=== PATIENT | male | born 1990 | race Two or more races ===

== ENCOUNTER 2018-10-25 19:15 | Emergency (ER) | payer SELFPAY ==
[~2018-10-25] VITALS: Ht 172.7 cm; Wt 54.4 kg
[2018-10-25] MEDS ORDERED: UNABLE MC (19:30)
[2018-10-25] MEDS ORDERED: IV NORMAL SALINE 1000ML BAG 1,000 ML IV ONE (19:45)
[2018-10-25] MEDS ORDERED: LIDOCAINE 2% 20 ML VIAL. IJ ONE (19:45)
[2018-10-25 19:54] LABS: CALCIUM 8.6 mg/dL (8.5-10.1); GFR 89.6; POTASSIUM 4.3 mmol/L (3.5-5.1)
[2018-10-25 19:56] LABS: BASO # 0.1 x10^3/uL (0.0-0.2); BASO % 1 % (0-3); EOS # 0.1 x10^3/uL (0.0-0.7); EOS % 1 % (0-3); HEMATOCRIT 45.5 % (39.0-53.0); HEMOGLOBIN 15.3 g/dL (13.0-17.5); LYMPH # 3.9 x10^3/uL (1.0-4.8); LYMPH % 33 % (24-48); MEAN CORPUSCULAR HEMOGLOBIN 30 pg (25-35); MEAN CORPUSCULAR HGB CONC 34 g/dL (31-37); MEAN CORPUSCULAR VOLUME 91 fL (79-100); MONO # 0.5 x10^3/uL (0.0-1.1); MONO % 4 % (0-9); NEUT # 7.3 x10^3uL (1.8-7.7); NEUT % 62 % (31-73); PLATELET COUNT 399 x10^3/uL (140-400); RED BLOOD COUNT 5.01 x10^6/uL (4.30-5.70); RED CELL DISTRIBUTION WIDTH 13.5 % (11.5-14.5); WHITE BLOOD COUNT 11.9 x10^3/uL (4.0-11.0)
[2018-10-25 20:00] LABS: ALBUMIN 4.2 g/dL (3.4-5.0); MAGNESIUM 2.5 mg/dL (1.8-2.4); TOTAL BILIRUBIN 0.3 mg/dL (0.2-1.0); TOTAL PROTEIN 8.4 g/dL (6.4-8.2)
[2018-10-25] MEDS ORDERED: DIPHTH,PERTUSS(ACELL),TET TOX 0.5 ML DISP.SYRIN. VAX IM ONE (20:00)
[2018-10-25 20:01] LABS: PROTHROMBIN TIME PATIENT 13.8 SEC (11.7-14.0)
[2018-10-25] MEDS ORDERED: fentaNYL PF VIAL 100 MCG/2 ML VIAL IV ONE (20:15)
[2018-10-25] MEDS ORDERED: IOHEXOL 300 MG/ML 100ML VIAL. IV ONE (20:15)
[2018-10-25] MEDS ORDERED: LIDOCAINE 2% 20 ML VIAL. ONE (20:16)
--- NOTE | 2018-10-25 20:23 | RAD ---
CT scan of the head without contrast 10/25/2018 Clinical History: Head pain post trauma. Technique: Unenhanced, contiguous, 5 mm axial sections were obtained through the head. One or more of the following individualized dose reduction techniques were utilized for this study: 1. Automated exposure control. 2. Adjustment of the mA and/or kV according to patient size. 3. Use of iterative reconstruction technique. Findings: The ventricles and sulci are within normal limits in size and configuration. No area of abnormal attenuation is seen involving brain parenchyma. No extra-axial fluid collection is noted. No skull fracture is seen. Impression: No acute intracranial abnormality is seen. CT scan of the cervical spine without contrast 10/25/2018 Clinical history: Neck pain post trauma. Technique: Unenhanced, contiguous, 0.625 mm axial sections were obtained through the cervical spine. Axial, coronal and sagittal reconstructed images were obtained. One or more of the following individualized dose reduction techniques were utilized for this study: 1. Automated exposure control. 2. Adjustment of the mA and/or kV according to patient size. 3. Use of iterative reconstruction technique. Findings: Sagittal and coronal reconstructed images demonstrate very mild lateral curvature of the cervical spine, convex to the left. No fracture or subluxation of the cervical vertebraeis seen. Impression: No fracture or subluxation of the cervical vertebra is identified. Electronically signed by: Beto Luna MD (10/25/2018 8:20 PM) [facility]
--- NOTE | 2018-10-25 20:29 | RAD ---
CT scan of the facial bones without contrast 10/25/2018 CLINICAL HISTORY: Facial pain post trauma. TECHNIQUE: Unenhanced, contiguous, 0.625 mm axial sections were obtained through the facial bones and orbits. 3 mm reconstructed sagittal, axial and coronal images were obtained. One or more of the following individualized dose reduction techniques were utilized for this study: 1. Automated exposure control. 2. Adjustment of the mA and/or kV according to patient size. 3. Use of iterative reconstruction technique. FINDINGS: An acute comminuted fracture of the posterolateral wall of the right maxillary sinus is seen. The fracture fragments are not significantly displaced. A small fluid level consistent with hemorrhage is seen within the posterior aspect of the right maxillary sinus. No additional facial bone fracture is seen. Both orbits are intact. Mild mucosal thickening in seen scattered throughout the paranasal sinuses. IMPRESSION: Acute comminuted fracture of the posterolateral wall of the right maxillary sinus. Electronically signed by: Beto Luna MD (10/25/2018 8:26 PM) [facility]
[2018-10-25] MEDS ORDERED: CONTRAST GIVEN. MC PRN (20:30)
[2018-10-25 20:39] LABS: BILIRUBIN,URINE NEGATIVE (NEG); CLARITY,URINE CLEAR; COLOR,URINE YELLOW; NITRITE,URINE NEGATIVE (NEG); PH,URINE 5.5; PROTEIN,URINE NEGATIVE (NEG-TRACE); UROBILINOGEN,URINE 0.2 mg/dL (0.2 mg/dL)
--- NOTE | 2018-10-25 20:53 | RAD ---
CT scan of the chest, abdomen and pelvis with contrast 10/25/2018 CLINICAL HISTORY: Chest, abdominal and pelvic pain post trauma. TECHNIQUE: After the intravenous administration of 75 cc of Omnipaque, contiguous 5 mm axial sections were obtained through the chest, abdomen and pelvis. One or more of the following individualized dose reduction techniques were utilized for this study: 1. Automated exposure control. 2. Adjustment of the mA and/or kV according to patient size. 3. Use of iterative reconstruction technique. FINDINGS: Comparison is made to an AP pelvis radiograph and portable chest radiograph performed earlier today. No mediastinal hematoma is seen. The heart and thoracic aorta are within normal limits. Minimal dependent subsegmental atelectasis is seen involving both lungs. No acute pulmonary infiltrate is seen. No pleural effusion or pneumothorax is noted. An acute comminuted fracture of the mid diaphysis of the clavicle is seen. Slight overriding of the fracture fragments is noted. The liver, spleen, pancreas, adrenal glands and kidneys are within normal limits. The abdominal aorta tapers normally. The gallbladder is slightly contracted. No free fluid or free air is seen within the abdomen. There is no evidence of bowel obstruction. Moderate amount stool seen throughout the colon. The appendix is well-visualized and is within normal limits. Images through the pelvis demonstrate the urinary bladder distended with urine. No free fluid is seen. No pelvic hematoma is noted. Very mild S-shaped curvature of the thoracolumbar spine is noted. The osseous structures of the abdomen and pelvis are intact. IMPRESSION: 1. Acute comminuted fracture of the right clavicle 2. No additional acute abnormality is seen. Electronically signed by: Beto Luna MD (10/25/2018 8:50 PM) [facility]
[2018-10-25 20:54] LABS: AMPHETAMINE/METHAMPHETAMINE NEG (NEG); BACTERIA,URINE 0 /HPF (0-FEW); BARBITURATES NEG (NEG); BENZODIAZEPINES NEG (NEG); CANNABINOIDS NEG (NEG); COCAINE NEG (NEG); METHADONE NEG (NEG); OPIATES NEG (NEG); PHENCYCLIDINE NEG (NEG); RBC,URINE OCC /HPF (0-2); SQUAMOUS EPITHELIAL CELL,UR FEW /LPF; WBC,URINE OCC /HPF (0-4)
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
[2018-10-25] MEDS ORDERED: LIDOCAINE 2%/EPI 1:100,000 20 ML VIAL. IJ ONE (21:30)
[2018-10-25] MEDS ORDERED: ZIPRASIDONE IM 20 MG VIAL. IM ONE ×2 (22:42→23:15)
[2018-10-25] MEDS ORDERED: NEOMY/BACITR/POLYMYXIN OINT PACKET. TP ONE (22:49)
--- NOTE | 2018-10-25 23:39 | RAD ---
AP portable chest radiograph 10/25/2018 Clinical History: Chest pain. Trauma An AP supine portable digital radiograph of the chest was obtained. The cardiac and mediastinal silhouettes are within normal limits in size and configuration. No acute pulmonary infiltrate is seen. No pleural effusion or pneumothorax is noted. An acute fracture of the mid shaft of the right clavicle is noted. Overriding of fracture fragments is seen. IMPRESSION: Acute fracture of the right clavicle. Electronically signed by: Beto Luna MD (10/25/2018 11:36 PM) [facility]
--- NOTE | 2018-10-26 00:01 | RAD ---
AP pelvis radiograph 10/25/2018 Clinical History: Pelvic pain. Trauma. An AP digital radiograph of the pelvis was obtained. No fracture or dislocation is seen. Both hips are intact. No significant degenerative changes are noted. No radiopaque foreign body is seen. Calcifications are seen within the pelvis consistent with phleboliths. Impression: No fracture or dislocation is seen. Electronically signed by: Beto Luna MD (10/25/2018 11:58 PM) [facility]
--- NOTE | 2018-10-26 00:03 | RAD ---
Three-view right knee radiographs 10/25/2018 CLINICAL HISTORY: Right knee pain post trauma. AP, lateral and oblique digital radiographs of the right knee were obtained. Irregularity of the soft tissues of the anterior right knee is seen. No fracture or dislocation of the right knee is noted. No radiopaque foreign body is seen. IMPRESSION: Anterior soft tissue injury. No fracture or dislocation of the right knee is seen. Electronically signed by: Beto Luna MD (10/26/2018 12:00 AM) [facility]
[2018-10-26] MEDS ORDERED: NEOMY/BACITR/POLYMYXIN OINT PACKET. TP ONE (01:00)
[2018-10-26 02:47] VITALS: BP 104/57
[2018-10-26] MEDS ORDERED: CEPH-264 PO (04:07)
[2018-10-26] MEDS ORDERED: HYDR-3164 PO (04:07)
[2018-10-26] MEDS ORDERED: NAPR-514 PO (04:07)
--- NOTE | 2018-10-26 06:08 | EKG ---
[facility] [address] [place] [address] Test Date: 2018-10-25 Test Time: 19:29:09 Pat Name: ALISA SEBASTIAN Department: Room: Gender: M [employer] T[employer]: : 1990 Requested By: MARIAH JAMA Order Number: [id number] Reading MD: Measurements Intervals [place] Rate: 76 P: 59 [place]: 158 QRS: 67 QRSD: 76 T: 55 QT: 348 QTc: 395 Interpretive Statements SINUS RHYTHM LEFT ATRIAL ABNORMALITY QRS(T) CONTOUR ABNORMALITY CONSIDER ANTEROSEPTAL MYOCARDIAL DAMAGE ABNORMAL ECG RI6.01 Unconfirmed report No previous ECG available for comparison
== END 2018-10-26 06:20 | disposition home or self-care (01) ==
LOC: EDBD 19:15 → ER 19:15
DX: S42.021A Displaced fracture of shaft of right clavicle, initial encounter for closed fracture (principal); S02.40CA Maxillary fracture, right side, initial encounter for closed fracture; S81.011A Laceration without foreign body, right knee, initial encounter; S01.311A Laceration without foreign body of right ear, initial encounter; S01.81XA Laceration without foreign body of other part of head, initial encounter; F10.229 Alcohol dependence with intoxication, unspecified; Y90.8 Blood alcohol level of 240 mg/100 ml or more; V27.9XXA Unspecified motorcycle rider injured in collision with fixed or stationary object in traffic accident, initial encounter; Y93.89 Activity, other specified; Y92.410 Unspecified street and highway as the place of occurrence of the external cause; Y99.8 Other external cause status
CPT/HCPCS: 12004; 12015; 36415; 70450; 70486; 71045; 71260; 72125; 72170; 73562; 74177; 80053; 80307; 81001; 83690; 83735; 85025; 85610; 85730; 90471; 90715; 93005; 96365; 96372; 96375; 96376; 99285; G0480; J0696; J2060; J3010; J3486; J3490; J7030; Q9967